=== PATIENT | female | born 1970 | race African-American/Black ===

== ENCOUNTER 2020-11-01 04:19 | Inpatient (IN) | payer OTHER ==
[2020-11-01] MEDS ORDERED: CEFOTAXIME SODIUM 1,000 MG in DEXTROSE 5%-WATER - 50 ML IVPB ONE ×2 (05:18→06:25)
[2020-11-01] MEDS ORDERED: AZITHROMYCIN IVPB 500 MG in DEXTROSE 5%-WATER - 250 ML IVPB ONE ×2 (05:20→06:25)
[2020-11-01] MEDS ORDERED: morphine CARPU-JECT 4 MG/1 ML DISP.SYRIN IVPUSH ONE (05:25)
[2020-11-01] MEDS ORDERED: METOCLOPRAMIDE HCL INJECTION 10 MG/2 ML VIAL ONE (05:27)
[2020-11-01] MEDS ORDERED: morphine SULFATE 4 MG/ML VIAL ONE ×4 (05:27→17:49)
[2020-11-01] MEDS ORDERED: METOCLOPRAMIDE HCL INJECTION 10 MG/2 ML VIAL IVPB ONE (05:27)
[2020-11-01 05:49] LABS: HEMOGLOBIN 7.2 GM/dL (10.7-15.3); LYMPH % 46.8 % (8-40); MCHC 34.8 g/dl (32.0-36.0); MEAN CELL VOLUME 123.5 fl (80-96); MEAN PLT VOLUME 12.2 fl (7.5-11.1); MONO % 8.6 % (3.8-10.2); NEUT % 40.6 % (42.8-82.8); PLATELET COUNT 139 K/MM3 (134-434); RBC 1.67 M/mm3 (3.60-5.2); RDW 20.2 % (11.6-15.6); WHITE BLOOD COUNT 5.6 K/mm3 (4.0-10.0)
[2020-11-01 06:01] LABS: INR 1.15 (0.83-1.09); PROTHROMBIN TIME (PATIENT) 13.8 SEC (9.7-13.0)
[2020-11-01 06:02] LABS: HEMATOCRIT 20.6 % (32.4-45.2)
[2020-11-01 06:03] LABS: ACTIVATED PTT 30.6 SECONDS (25.2-36.5)
[2020-11-01 06:23] LABS: EPI CELLS 7 /uL (0-25.1); HYALINE CASTS 0 /uL (0-3.1); URINE APPEARANCE CLEAR; URINE BACTERIA 125 /uL (0-1359); URINE BILIRUBIN NEGATIVE (NEGATIVE); URINE COLOR YELLOW; URINE GLUCOSE (UA) NEGATIVE (NEGATIVE); URINE KETONE NEGATIVE (NEGATIVE); URINE LEUK ESTERASE TRACE (NEGATIVE); URINE NITRITE NEGATIVE (NEGATIVE); URINE PROTEIN NEGATIVE (NEGATIVE); URINE RBC 2 /uL (0-23.9); URINE WBC 12 /uL (0-25.8)
[2020-11-01] MEDS ORDERED: AZITHROMYCIN IVPB 500 MG/250 ML BAG IVPB ONE (06:27)
[2020-11-01 06:49] LABS: ALBUMIN 3.3 g/dl (3.4-5.0); BLOOD UREA NITROGEN 9.9 mg/dL (7-18); CALCIUM 8.4 mg/dL (8.5-10.1)
[2020-11-01 06:53] LABS: CREATININE 0.8 mg/dL (0.55-1.3)
[2020-11-01 06:54] LABS: BILIRUBIN,TOTAL 1.3 mg/dL (0.2-1); TOT PROT 8.4 g/dl (6.4-8.2)
[2020-11-01] MEDS ORDERED: CEFTRIAXONE 1,000 MG in DEXTROSE 5%-WATER - 50 ML IVPB ONE (07:47)
[2020-11-01] MEDS ORDERED: CEFTRIAXONE 1 GM/50 ML BAG ONE (07:51)
[2020-11-01] MEDS ORDERED: levETIRAcetam 500 MG TABLET (FP) PO ONE (08:31)
[2020-11-01] MEDS ORDERED: morphine CARPU-JECT 8 MG/1 ML DISP.SYRIN IVPUSH ONE ×2 (09:36→13:34)
[2020-11-01 10:49] LABS: RETICULOCYTES 3.96 % (0.5-1.5)
[2020-11-01 10:59] LABS: ANISOCYTOSIS 1+; MACROCYTOSIS 1+; PLATELET ESTIMATE DECREASED; TARGET CELLS 2+
[2020-11-01] MEDS ORDERED: LACTATED RINGERS SOLUTION 1,000 ML/1,000 ML INFUS.BAG IV SCH (18:00)
[2020-11-01] MEDS: morphine SULFATE 4 MG/ML VIAL IVPUSH PRN ×2 (18:04→22:26)
[2020-11-01] MEDS ORDERED: CEFOTAXIME SODIUM IVPB SCH (21:00)
[2020-11-01] MEDS ORDERED: WATER IVPB SCH (21:00)
[2020-11-01] MEDS ORDERED: DEXTROSE 5% IVPB SCH (21:00)
[2020-11-01] MEDS ORDERED: PATIENT'S OWN MEDICATION (NON-FORMULARY) (Levetiracetam [Levetiracetam] 750 MG Tablet) PO SCH (22:00)
[2020-11-01] MEDS: levETIRAcetam 500 MG/5 ML ORAL SOLUTION (UNIT-DOSE CUPS) PO SCH (22:20)
[2020-11-01] MEDS: GABAPENTIN 300 MG CAPSULE PO SCH (22:21)
[2020-11-01] MEDS: ZOLPIDEM TARTRATE 5 MG TABLET PO SCH (22:21)
[2020-11-01] MEDS: SODIUM CHLORIDE 1,000 ML IV SCH (22:21)
[2020-11-01 23:36] VITALS: BMI 25.4
[2020-11-02] MEDS: morphine SULFATE 4 MG/ML VIAL IVPUSH PRN ×4 (03:38→20:40)
[2020-11-02] MEDS: SODIUM CHLORIDE 1,000 ML IV SCH ×2 (06:33→12:02)
[2020-11-02 08:43] LABS: BASO % 0.7 % (0-2.0); EOS % 2.7 % (0-4.5); HEMATOCRIT 26.9 % (32.4-45.2); HEMOGLOBIN 9.3 GM/dL (10.7-15.3); LYMPH % 48.9 % (8-40); MCH 38.8 pg (25.7-33.7); MCHC 34.4 g/dl (32.0-36.0); MEAN CELL VOLUME 112.8 fl (80-96); MEAN PLT VOLUME 11.9 fl (7.5-11.1); NEUT % 38.7 % (42.8-82.8); PLATELET COUNT 121 K/MM3 (134-434); RBC 2.39 M/mm3 (3.60-5.2); RDW 30.8 % (11.6-15.6)
[2020-11-02 08:45] LABS: WHITE BLOOD COUNT 5.4 K/mm3 (4.0-10.0)
[2020-11-02 08:58] LABS: ALBUMIN 3.2 g/dl (3.4-5.0); BLOOD UREA NITROGEN 7.1 mg/dL (7-18); CALCIUM 8.7 mg/dL (8.5-10.1); MAGNESIUM 2.7 mg/dL (1.8-2.4)
[2020-11-02 09:01] LABS: CREATININE 0.6 mg/dL (0.55-1.3)
[2020-11-02 09:04] LABS: BILIRUBIN,TOTAL 1.4 mg/dL (0.2-1); TOT PROT 7.7 g/dl (6.4-8.2)
[2020-11-02] MEDS ORDERED: DEXTROSE 5%-WATER - 50 ML IVPB ONE (09:30)
[2020-11-02] MEDS ORDERED: cefTRIAXone SODIUM 1 GM VIAL ONE (09:30)
[2020-11-02] MEDS: levETIRAcetam 500 MG/5 ML ORAL SOLUTION (UNIT-DOSE CUPS) PO SCH ×2 (09:51→22:02)
[2020-11-02] MEDS: LACTULOSE 20 GM/30 ML UDC (FOR ORAL USE ONLY) PO SCH (09:53)
[2020-11-02] MEDS: GABAPENTIN 300 MG CAPSULE PO SCH ×2 (09:54→22:02)
[2020-11-02] MEDS: FOLIC ACID 1 MG TABLET (FP) PO SCH (09:55)
[2020-11-02] MEDS: CEFTRIAXONE 1 GM in DEXTROSE 5%-WATER - 50 ML IVPB SCH (09:55)
[2020-11-02] MEDS: ASPIRIN 81 MG CHEWABLE TABLETS PO SCH (09:55)
[2020-11-02] MEDS ORDERED: PATIENT'S OWN MEDICATION (NON-FORMULARY) (Lactulose [Lactulose] 10 GM/15 ML Solution) PO SCH (10:00)
[2020-11-02] MEDS ORDERED: HYDROCHLOROTHIAZIDE 25 MG TABLET (FP) PO SCH (10:00)
[2020-11-02] MEDS: AZITHROMYCIN IVPB 500 MG/250 ML BAG IVPB SCH (12:00)
[2020-11-02] MEDS: PANTOPRAZOLE 20 MG TABLET PO SCH (12:01)
[2020-11-02] MEDS: HYDROXYUREA 500 MG CAPSULE PO SCH (12:01)
[2020-11-02 14:14] LABS: PLATELET ESTIMATE DECREASED
[2020-11-02] MEDS ORDERED: WATER IVPB SCH (18:00)
[2020-11-02] MEDS ORDERED: CEFOTAXIME SODIUM IVPB SCH (18:00)
[2020-11-02] MEDS ORDERED: DEXTROSE 5% IVPB SCH (18:00)
[2020-11-02] MEDS ORDERED: PT OWN MED DRAWER 7, Y5N ONE (19:38)
[2020-11-02] MEDS: ZOLPIDEM TARTRATE 5 MG TABLET PO SCH (22:02)
[2020-11-03] MEDS: SODIUM CHLORIDE 1,000 ML IV SCH ×3 (07:30→18:02)
[2020-11-03 08:41] LABS: HEMATOCRIT 27.6 % (32.4-45.2); HEMOGLOBIN 9.4 GM/dL (10.7-15.3); MCH 38.5 pg (25.7-33.7); MCHC 33.9 g/dl (32.0-36.0); MEAN CELL VOLUME 113.3 fl (80-96); MEAN PLT VOLUME 12.1 fl (7.5-11.1); PLATELET COUNT 115 K/MM3 (134-434); RBC 2.44 M/mm3 (3.60-5.2); RDW 31.4 % (11.6-15.6); WHITE BLOOD COUNT 4.6 K/mm3 (4.0-10.0)
[2020-11-03 09:03] LABS: CALCIUM 8.4 mg/dL (8.5-10.1)
[2020-11-03 09:04] LABS: BLOOD UREA NITROGEN 7.1 mg/dL (7-18)
[2020-11-03 09:08] LABS: CREATININE 0.6 mg/dL (0.55-1.3)
[2020-11-03 09:09] LABS: BILIRUBIN,TOTAL 1.2 mg/dL (0.2-1); TOT PROT 7.6 g/dl (6.4-8.2)
[2020-11-03] MEDS ORDERED: cefTRIAXone SODIUM 1 GM VIAL ONE (09:19)
[2020-11-03] MEDS ORDERED: DEXTROSE 5%-WATER - 50 ML IVPB ONE (09:20)
[2020-11-03] MEDS: PANTOPRAZOLE 20 MG TABLET PO SCH (09:26)
[2020-11-03] MEDS: ASPIRIN 81 MG CHEWABLE TABLETS PO SCH (09:26)
[2020-11-03] MEDS: FOLIC ACID 1 MG TABLET (FP) PO SCH (09:26)
[2020-11-03] MEDS: GABAPENTIN 300 MG CAPSULE PO SCH ×2 (09:26→22:10)
[2020-11-03] MEDS: LACTULOSE 20 GM/30 ML UDC (FOR ORAL USE ONLY) PO SCH (09:27)
[2020-11-03] MEDS: morphine SULFATE 4 MG/ML VIAL IVPUSH PRN ×4 (09:28→22:39)
[2020-11-03] MEDS: CEFTRIAXONE 1 GM in DEXTROSE 5%-WATER - 50 ML IVPB SCH (09:40)
[2020-11-03] MEDS: HYDROXYUREA 500 MG CAPSULE PO SCH (09:50)
[2020-11-03] MEDS: levETIRAcetam 500 MG/5 ML ORAL SOLUTION (UNIT-DOSE CUPS) PO SCH ×2 (09:50→22:40)
[2020-11-03] MEDS: AZITHROMYCIN IVPB 500 MG/250 ML BAG IVPB SCH (11:21)
[2020-11-03] MEDS ORDERED: PT OWN MED DRAWER 7, Y5N ONE (21:58)
[2020-11-03] MEDS: ZOLPIDEM TARTRATE 5 MG TABLET PO SCH (22:10)
[2020-11-04] MEDS: SODIUM CHLORIDE 1,000 ML IV SCH ×3 (01:44→19:56)
[2020-11-04] MEDS: morphine SULFATE 4 MG/ML VIAL IVPUSH PRN ×5 (05:05→21:22)
[2020-11-04 09:30] LABS: BASO % 0.4 % (0-2.0); EOS % 2.4 % (0-4.5); HEMATOCRIT 25.1 % (32.4-45.2); HEMOGLOBIN 8.6 GM/dL (10.7-15.3); LYMPH % 44.6 % (8-40); MCH 39.2 pg (25.7-33.7); MCHC 34.2 g/dl (32.0-36.0); MEAN CELL VOLUME 114.7 fl (80-96); MEAN PLT VOLUME 12.8 fl (7.5-11.1); MONO % 9.3 % (3.8-10.2); NEUT % 43.3 % (42.8-82.8); PLATELET COUNT 100 K/MM3 (134-434); RBC 2.19 M/mm3 (3.60-5.2); RDW 29.5 % (11.6-15.6); WHITE BLOOD COUNT 4.1 K/mm3 (4.0-10.0)
[2020-11-04 10:03] LABS: ALBUMIN 2.9 g/dl (3.4-5.0)
[2020-11-04 10:04] LABS: BLOOD UREA NITROGEN 4.1 mg/dL (7-18); MAGNESIUM 1.9 mg/dL (1.8-2.4)
[2020-11-04 10:06] LABS: CALCIUM 7.8 mg/dL (8.5-10.1)
[2020-11-04 10:07] LABS: BILIRUBIN,TOTAL 1.2 mg/dL (0.2-1); CREATININE 0.4 mg/dL (0.55-1.3); TOT PROT 7.3 g/dl (6.4-8.2)
[2020-11-04] MEDS ORDERED: PT OWN MED DRAWER 7, Y5N ONE (10:12)
[2020-11-04] MEDS ORDERED: cefTRIAXone SODIUM 1 GM VIAL ONE (10:13)
[2020-11-04] MEDS ORDERED: DEXTROSE 5%-WATER - 50 ML IVPB ONE (10:13)
[2020-11-04] MEDS: LACTULOSE 20 GM/30 ML UDC (FOR ORAL USE ONLY) PO SCH (10:37)
[2020-11-04] MEDS: CEFTRIAXONE 1 GM in DEXTROSE 5%-WATER - 50 ML IVPB SCH (10:37)
[2020-11-04] MEDS: levETIRAcetam 500 MG/5 ML ORAL SOLUTION (UNIT-DOSE CUPS) PO SCH ×2 (10:40→21:23)
[2020-11-04] MEDS: GABAPENTIN 300 MG CAPSULE PO SCH ×2 (10:42→21:23)
[2020-11-04] MEDS: PANTOPRAZOLE 20 MG TABLET PO SCH (10:42)
[2020-11-04] MEDS: ASPIRIN 81 MG CHEWABLE TABLETS PO SCH (10:42)
[2020-11-04] MEDS: FOLIC ACID 1 MG TABLET (FP) PO SCH (10:42)
[2020-11-04] MEDS: AZITHROMYCIN IVPB 500 MG/250 ML BAG IVPB SCH (10:46)
[2020-11-04] MEDS: HYDROXYUREA 500 MG CAPSULE PO SCH (11:21)
[2020-11-04] MEDS: ZOLPIDEM TARTRATE 5 MG TABLET PO SCH (21:23)
[2020-11-05] MEDS: morphine SULFATE 4 MG/ML VIAL IVPUSH PRN ×7 (01:50→22:03)
[2020-11-05] MEDS: SODIUM CHLORIDE 1,000 ML IV SCH ×3 (04:00→22:06)
[2020-11-05 09:13] LABS: HEMATOCRIT 25.7 % (32.4-45.2); HEMOGLOBIN 8.9 GM/dL (10.7-15.3); MCH 39.5 pg (25.7-33.7); MCHC 34.7 g/dl (32.0-36.0); MEAN CELL VOLUME 113.7 fl (80-96); MEAN PLT VOLUME 11.8 fl (7.5-11.1); PLATELET COUNT 102 K/MM3 (134-434); RBC 2.26 M/mm3 (3.60-5.2); RETICULOCYTES 2.02 % (0.5-1.5); WHITE BLOOD COUNT 4.7 K/mm3 (4.0-10.0)
[2020-11-05 09:25] LABS: ALBUMIN 2.9 g/dl (3.4-5.0); CALCIUM 7.7 mg/dL (8.5-10.1)
[2020-11-05 09:26] LABS: BLOOD UREA NITROGEN 4.5 mg/dL (7-18); MAGNESIUM 1.9 mg/dL (1.8-2.4)
[2020-11-05 09:28] LABS: BILIRUBIN,TOTAL 1.1 mg/dL (0.2-1); TOT PROT 7.1 g/dl (6.4-8.2)
[2020-11-05 09:29] LABS: CREATININE 0.5 mg/dL (0.55-1.3); PHOSPHOROUS 2.5 mg/dL (2.5-4.9)
[2020-11-05] MEDS ORDERED: PT OWN MED DRAWER 7, Y5N ONE (11:37)
[2020-11-05] MEDS: levETIRAcetam 500 MG/5 ML ORAL SOLUTION (UNIT-DOSE CUPS) PO SCH ×2 (11:40→21:28)
[2020-11-05] MEDS: ASPIRIN 81 MG CHEWABLE TABLETS PO SCH (11:40)
[2020-11-05] MEDS: HYDROXYUREA 500 MG CAPSULE PO SCH (11:42)
[2020-11-05] MEDS: GABAPENTIN 300 MG CAPSULE PO SCH ×2 (11:43→21:28)
[2020-11-05] MEDS: FOLIC ACID 1 MG TABLET (FP) PO SCH (11:43)
[2020-11-05] MEDS: PANTOPRAZOLE 20 MG TABLET PO SCH (11:43)
[2020-11-05] MEDS: LACTULOSE 20 GM/30 ML UDC (FOR ORAL USE ONLY) PO SCH (11:45)
[2020-11-05] MEDS: ZOLPIDEM TARTRATE 5 MG TABLET PO SCH (22:03)
[2020-11-05] MEDS ORDERED: ACETAMINOPHEN 325 MG TABLET (FP) PO PRN (22:05)
[2020-11-06] MEDS: morphine SULFATE 4 MG/ML VIAL IVPUSH PRN ×6 (01:37→22:05)
[2020-11-06] MEDS: SODIUM CHLORIDE 1,000 ML IV SCH ×3 (06:07→23:25)
[2020-11-06] MEDS ORDERED: PT OWN MED DRAWER 7, Y5N ONE ×2 (08:48→17:42)
[2020-11-06 08:58] LABS: HEMATOCRIT 25.9 % (32.4-45.2); HEMOGLOBIN 9.2 GM/dL (10.7-15.3); MCHC 35.4 g/dl (32.0-36.0); MEAN CELL VOLUME 113.5 fl (80-96); MEAN PLT VOLUME 11.5 fl (7.5-11.1); PLATELET COUNT 102 K/MM3 (134-434); RBC 2.28 M/mm3 (3.60-5.2); RDW 28.5 % (11.6-15.6); RETICULOCYTES 2.37 % (0.5-1.5)
[2020-11-06 09:09] LABS: MCH 40.2 pg (25.7-33.7)
[2020-11-06 09:10] LABS: WHITE BLOOD COUNT 5.4 K/mm3 (4.0-10.0)
[2020-11-06] MEDS: levETIRAcetam 500 MG/5 ML ORAL SOLUTION (UNIT-DOSE CUPS) PO SCH ×2 (09:24→22:06)
[2020-11-06] MEDS: FOLIC ACID 1 MG TABLET (FP) PO SCH (09:24)
[2020-11-06] MEDS: PANTOPRAZOLE 20 MG TABLET PO SCH (09:24)
[2020-11-06] MEDS: LACTULOSE 20 GM/30 ML UDC (FOR ORAL USE ONLY) PO SCH (09:24)
[2020-11-06] MEDS: ASPIRIN 81 MG CHEWABLE TABLETS PO SCH (09:24)
[2020-11-06] MEDS: GABAPENTIN 300 MG CAPSULE PO SCH ×2 (09:25→22:06)
[2020-11-06] MEDS: HYDROXYUREA 500 MG CAPSULE PO SCH (09:25)
[2020-11-06 09:27] LABS: BILIRUBIN,TOTAL 1.2 mg/dL (0.2-1); BLOOD UREA NITROGEN 4.4 mg/dL (7-18); CALCIUM 8.3 mg/dL (8.5-10.1); MAGNESIUM 1.9 mg/dL (1.8-2.4)
[2020-11-06 09:29] LABS: BILIRUBIN,DIRECT 0.7 mg/dL (0.0-0.2)
[2020-11-06 09:31] LABS: CREATININE 0.5 mg/dL (0.55-1.3); PHOSPHOROUS 2.5 mg/dL (2.5-4.9); TOT PROT 7.4 g/dl (6.4-8.2)
[2020-11-06] MEDS ORDERED: FUROSEMIDE 40 MG/4 ML INJECTABLE VIAL IVPUSH ONE (11:00)
[2020-11-06] MEDS: CARVEDILOL 3.125 MG TABLET (FP) PO SCH ×2 (11:04→22:06)
[2020-11-06 11:46] LABS: ANISOCYTOSIS 1+; MACROCYTOSIS 1+; PLATELET ESTIMATE DECREASED; TARGET CELLS 1+
[2020-11-06] MEDS: ZOLPIDEM TARTRATE 5 MG TABLET PO SCH (22:06)
[2020-11-07] MEDS: morphine SULFATE 4 MG/ML VIAL IVPUSH PRN ×2 (02:09→08:59)
[2020-11-07] MEDS: SODIUM CHLORIDE 1,000 ML IV SCH (07:30)
[2020-11-07 08:56] VITALS: BP 119/67; PULSE 78; TEMP 98.3
[2020-11-07 09:27] LABS: BASO % 0.7 % (0-2.0); EOS % 2.2 % (0-4.5); HEMATOCRIT 25.2 % (32.4-45.2); HEMOGLOBIN 8.6 GM/dL (10.7-15.3); LYMPH % 46.3 % (8-40); MCH 39.2 pg (25.7-33.7); MCHC 34.4 g/dl (32.0-36.0); MEAN PLT VOLUME 12.3 fl (7.5-11.1); MONO % 8.6 % (3.8-10.2); NEUT % 42.2 % (42.8-82.8); PLATELET COUNT 97 K/MM3 (134-434); RBC 2.21 M/mm3 (3.60-5.2); RDW 28.3 % (11.6-15.6); WHITE BLOOD COUNT 5.5 K/mm3 (4.0-10.0)
[2020-11-07 09:53] LABS: ALBUMIN 3.1 g/dl (3.4-5.0); BLOOD UREA NITROGEN 3.8 mg/dL (7-18); CALCIUM 8.6 mg/dL (8.5-10.1)
[2020-11-07 09:56] LABS: CREATININE 0.5 mg/dL (0.55-1.3)
[2020-11-07 09:57] LABS: BILIRUBIN,TOTAL 1.4 mg/dL (0.2-1)
[2020-11-07 09:58] LABS: TOT PROT 7.3 g/dl (6.4-8.2)
[2020-11-07] MEDS ORDERED: VALSARTAN 40 MG TABLET PO SCH ×2 (10:00)
[2020-11-07] MEDS ORDERED: SODIUM CHLORIDE 1,000 ML IV SCH (10:06)
[2020-11-07] MEDS: HYDROXYUREA 500 MG CAPSULE PO SCH (10:15)
[2020-11-07] MEDS: LACTULOSE 20 GM/30 ML UDC (FOR ORAL USE ONLY) PO SCH (10:16)
[2020-11-07] MEDS: PANTOPRAZOLE 20 MG TABLET PO SCH (10:16)
[2020-11-07] MEDS: levETIRAcetam 500 MG/5 ML ORAL SOLUTION (UNIT-DOSE CUPS) PO SCH (10:16)
[2020-11-07] MEDS: FOLIC ACID 1 MG TABLET (FP) PO SCH (10:17)
[2020-11-07] MEDS: ASPIRIN 81 MG CHEWABLE TABLETS PO SCH (10:18)
[2020-11-07] MEDS: CARVEDILOL 3.125 MG TABLET (FP) PO SCH (10:18)
[2020-11-07] MEDS: GABAPENTIN 300 MG CAPSULE PO SCH (10:18)
[2020-11-07 11:13] LABS: ANISOCYTOSIS 3+; MACROCYTOSIS 3+; OVALOCYTE 2+; PLATELET ESTIMATE DECREASED; TARGET CELLS 1+
[2020-11-07] MEDS ORDERED: POTASSIUM CHLORIDE TABS 20 MEQ TABLET.ER (FP) PO ONE ×2 (12:35→14:35)
== END 2020-11-07 14:46 | disposition home or self-care (01) | DRG 812 ==
LOC: JER 04:19 → JERBED 14:48 → J5S 20:00
PROVIDERS: ATTEND Internal Medicine
PROC: 30233N1 Transfusion of Nonautologous Red Blood Cells into Peripheral Vein, Percutaneous Approach (ICD-10-PCS; principal; 2020-11-01)
DX: D57.00 Hb-SS disease with crisis, unspecified (principal); I31.3 Pericardial effusion (noninflammatory); I42.8 Other cardiomyopathies; G40.909 Epilepsy, unspecified, not intractable, without status epilepticus; I27.20 Pulmonary hypertension, unspecified; R10.12 Left upper quadrant pain
CPT/HCPCS: 36415; 36430; 71045-TC-FY; 71275-TC; 74177-TC; 80048; 80053; 80076; 81003; 83605; 83615; 83690; 83735; 84100; 84703; 85025; 85027; 85045; 85610; 85730; 86850; 86900; 86901; 86922; 87040; 87086; 87804; 87899; 93005; 93010; 93306-TC; 94010; 97116-GP; 97162-GP; 99285-25; C9803; J8999; P9058; Q9967; U0003; U0005

== ENCOUNTER 2024-03-22 23:01 | Observation (INO) | payer OTHER ==
[2024-03-23 01:13] LABS: BASO % 1.6 % (0-2.0); EOS % 2.9 % (0-4.5); HEMATOCRIT 26.3 % (32.4-45.2); HEMOGLOBIN 8.9 GM/dL (10.7-15.3); LYMPH % 43.6 % (8-40); MCH 32.3 pg (25.7-33.7); MCHC 34.1 g/dl (32.0-36.0); MEAN CELL VOLUME 94.7 fl (80-96); MEAN PLT VOLUME 10.4 fl (7.5-11.1); NEUT % 40.9 % (42.8-82.8); PLATELET COUNT 154 10^3/uL (134-434); RBC 2.77 M/mm3 (3.60-5.2); RDW 24.1 % (11.6-15.6); WHITE BLOOD COUNT 6.2 K/mm3 (4.0-10.0)
[2024-03-23 01:41] LABS: POTASSIUM 3.9 mmol/L (3.5-5.1)
[2024-03-23 01:43] LABS: CALCIUM 8.7 mg/dL (8.5-10.1)
[2024-03-23 01:44] LABS: ALBUMIN 2.7 g/dl (3.4-5.0); BLOOD UREA NITROGEN 23.7 mg/dL (7-18)
[2024-03-23 01:47] LABS: CREATININE 1.2 mg/dL (0.55-1.3)
[2024-03-23 01:49] LABS: BILIRUBIN,TOTAL 3.2 mg/dL (0.2-1); TOT PROT 7.2 g/dl (6.4-8.2)
[2024-03-23 04:42] LABS: ANISOCYTOSIS 3+; MACROCYTOSIS 1+; ROULEAU 1+; SICKELED CELLS 1+; TARGET CELLS 2+
[2024-03-23] MEDS ORDERED: morphine SO4 SUSTAINED ACTING 30 MG TABLET.SA PO PRN (06:00)
[2024-03-23] MEDS ORDERED: PATIENT'S OWN MEDICATION (NON-FORMULARY) (Riociguat [Adempas] 2.5 MG Tablet) PO SCH (06:00)
[2024-03-23] MEDS ORDERED: PATIENT'S OWN MEDICATION (NON-FORMULARY) (Levetiracetam [Levetiracetam] 750 MG Tablet) PO SCH (06:00)
[2024-03-23] MEDS ORDERED: PATIENT'S OWN MEDICATION (NON-FORMULARY) (Oxycodone Hcl/Acetaminophen [Endocet 10-325 Mg T PO PRN (06:01)
[2024-03-23 07:50] LABS: CALCIUM 8.8 mg/dL (8.5-10.1)
[2024-03-23 07:52] LABS: ALBUMIN 2.6 g/dl (3.4-5.0); MAGNESIUM 1.8 mg/dL (1.8-2.4)
[2024-03-23 07:55] LABS: CREATININE 1.1 mg/dL (0.55-1.3); PHOSPHOROUS 3.7 mg/dL (2.5-4.9)
[2024-03-23 07:56] LABS: BILIRUBIN,TOTAL 2.7 mg/dL (0.2-1); TOT PROT 6.8 g/dl (6.4-8.2)
[2024-03-23 08:16] LABS: HEMATOCRIT 24.4 % (32.4-45.2); HEMOGLOBIN 8.3 GM/dL (10.7-15.3); MCH 32.3 pg (25.7-33.7); MCHC 34.1 g/dl (32.0-36.0); MEAN CELL VOLUME 94.8 fl (80-96); MEAN PLT VOLUME 10.7 fl (7.5-11.1); PLATELET COUNT 151 10^3/uL (134-434); RBC 2.58 M/mm3 (3.60-5.2); RDW 24.4 % (11.6-15.6)
[2024-03-23] MEDS ORDERED: PANTOPRAZOLE 40 MG TABLET PO ONE (08:18)
[2024-03-23 08:20] LABS: WHITE BLOOD COUNT 6.4 K/mm3 (4.0-10.0)
[2024-03-23] MEDS: PANTOPRAZOLE 40 MG TABLET PO SCH (08:22)
[2024-03-23 09:25] LABS: ANISOCYTOSIS 1+; MACROCYTOSIS 1+; TARGET CELLS 2+
[2024-03-23] MEDS ORDERED: APIXABAN 5 MG TABLET ONE (09:44)
[2024-03-23] MEDS ORDERED: SPIRONOLACTONE 25 MG TABLET ONE (09:45)
[2024-03-23] MEDS: APIXABAN 5 MG TABLET PO SCH (10:12)
[2024-03-23] MEDS: HYDROXYUREA 500 MG CAPSULE PO SCH (10:12)
[2024-03-23] MEDS: TORSEMIDE 20 MG TABLET (FP) PO SCH (10:12)
[2024-03-23] MEDS: SPIRONOLACTONE 25 MG TABLET PO SCH (10:12)
[2024-03-23] MEDS: MAGNESIUM OXIDE 400 MG TABLET (FP) PO ONE (10:12)
[2024-03-23 12:48] VITALS: BMI 19.8
[2024-03-23] MEDS ORDERED: SODIUM CHLORIDE 500 ML IV STA (16:17)
[2024-03-23] MEDS: morphine SO4 SUSTAINED ACTING 30 MG TABLET.SA PO SCH (21:49)
[2024-03-23] MEDS ORDERED: ATORVASTATIN CA 40 MG TABLET (FP) PO SCH (22:00)
[2024-03-23] MEDS: ZOLPIDEM TARTRATE 5 MG TABLET PO PRN (22:45)
[2024-03-24 12:11] VITALS: RESP 18
[2024-03-24 14:58] VITALS: BP 91/70; PULSE 98; TEMP 98.4
[2024-03-24] MEDS ORDERED: ACETAMINOPHEN 500 MG TABLET (FP) PO ONE (17:18)
[2024-03-24] MEDS: morphine SO4 SUSTAINED ACTING 30 MG TABLET.SA PO SCH (17:35)
[2024-03-25 16:09] LABS: HGB SOLUBILITY Positive (Negative)
== END 2024-03-24 18:18 | disposition home or self-care (01) ==
LOC: JER 23:01 → JERBED 03-23 01:24 → J7W 03-23 12:19
PROVIDERS: ADMIT Internal Medicine; ATTEND Nurse Practitioner Acute Care
DX: R09.02 Hypoxemia (principal); I27.20 Pulmonary hypertension, unspecified; I69.354 Hemiplegia and hemiparesis following cerebral infarction affecting left non-dominant side; G40.909 Epilepsy, unspecified, not intractable, without status epilepticus; I67.1 Cerebral aneurysm, nonruptured; D57.1 Sickle-cell disease without crisis; Z91.198 Patient's noncompliance with other medical treatment and regimen for other reason; Z90.49 Acquired absence of other specified parts of digestive tract
CPT/HCPCS: 36415; 76700-TC; 80053; 82248; 82962; 83021; 83615; 83735; 84100; 85025; 85027; 85660; 99285-25; G0378; J8999

== ENCOUNTER 2024-06-16 12:09 | Inpatient (IN) | payer OTHER ==
[2024-06-16] MEDS ORDERED: ACETAMINOPHEN 325 MG TABLET (FP) ONE (14:20)
[2024-06-16] MEDS: ACETAMINOPHEN 325 MG TABLET (FP) PO ONE (14:55)
[2024-06-16] MEDS ORDERED: LIDOCAINE 4% PATCH TP ONE (14:58)
[2024-06-16 15:02] LABS: BASO % 0.6 % (0-2.0); EOS % 0.8 % (0-4.5); HEMATOCRIT 22.1 % (32.4-45.2); HEMOGLOBIN 7.6 GM/dL (10.7-15.3); LYMPH % 37.4 % (8-40); MCH 39.2 pg (25.7-33.7); MCHC 34.5 g/dl (32.0-36.0); MEAN CELL VOLUME 113.7 fl (80-96); MEAN PLT VOLUME 11.6 fl (7.5-11.1); MONO % 11.3 % (3.8-10.2); NEUT % 49.9 % (42.8-82.8); PLATELET COUNT 100 10^3/uL (134-434); RBC 1.95 M/mm3 (3.60-5.2); RDW 29.8 % (11.6-15.6)
[2024-06-16 15:28] LABS: POTASSIUM 3.7 mmol/L (3.5-5.1)
[2024-06-16 15:31] LABS: CALCIUM 9.1 mg/dL (8.5-10.1)
[2024-06-16 15:32] LABS: ALBUMIN 3.9 g/dl (3.4-5.0); BLOOD UREA NITROGEN 12.6 mg/dL (7-18)
[2024-06-16 15:35] LABS: CREATININE 0.8 mg/dL (0.55-1.3)
[2024-06-16 15:36] LABS: BILIRUBIN,TOTAL 1.8 mg/dL (0.2-1)
[2024-06-16 15:37] LABS: TOT PROT 8.9 g/dl (6.4-8.2)
[2024-06-16] MEDS: LIDOCAINE 4% PATCH TP ONE (15:46)
[2024-06-16] MEDS ORDERED: KETOROLAC TROMETHAMINE 15 MG/ML VIAL ONE (15:49)
[2024-06-16 15:51] LABS: ANISOCYTOSIS 2+; TARGET CELLS 2+
[2024-06-16 15:52] LABS: MACROCYTOSIS 2+
[2024-06-16] MEDS: KETOROLAC TROMETHAMINE 15 MG/ML VIAL IM ONE (15:55)
[2024-06-16] MEDS: SODIUM CHLORIDE 500 ML IV STA (15:56)
[2024-06-16] MEDS ORDERED: HYDROmorphone HCL CARPU-JECT 2 MG/1 ML DISP.SYRIN ONE (16:59)
[2024-06-16] MEDS: HYDROmorphone HCl 2 MG/ML VIAL IVPUSH ONE (17:11)
[2024-06-16] MEDS ORDERED: MORPHINE SULFATE 2 MG/ML SYRINGE ONE (21:34)
[2024-06-16] MEDS: MORPHINE SULFATE 2 MG/ML SYRINGE IVPUSH ONE (21:38)
[2024-06-16] MEDS ORDERED: SENNOSIDES 8.6MG TABLET (FP) PO ONE (22:01)
[2024-06-16] MEDS ORDERED: APIXABAN 5 MG TABLET ONE (22:01)
[2024-06-16] MEDS ORDERED: ATORVASTATIN CA 40 MG TABLET (FP) ONE (22:02)
[2024-06-16] MEDS ORDERED: levETIRAcetam 500 MG TABLET (FP) PO ONE (22:05)
[2024-06-16] MEDS ORDERED: ZOLPIDEM TARTRATE 5 MG TABLET ONE (22:37)
[2024-06-16] MEDS: ZOLPIDEM TARTRATE 5 MG TABLET PO PRN (22:45)
[2024-06-16] MEDS: HYDROXYUREA 500 MG CAPSULE PO SCH (22:45)
[2024-06-16] MEDS: APIXABAN 5 MG TABLET PO SCH (22:45)
[2024-06-16] MEDS: levETIRAcetam 500 MG TABLET (FP) PO SCH (22:45)
[2024-06-16] MEDS: SENNOSIDES 8.6MG TABLET (FP) PO SCH (22:46)
[2024-06-16] MEDS: ATORVASTATIN CA 40 MG TABLET (FP) PO SCH (22:46)
[2024-06-17] MEDS: LIDOCAINE PATCH REMOVAL MC SCH (02:41)
[2024-06-17] MEDS: morphine SULFATE 4 MG/ML VIAL IVPUSH PRN (02:46)
[2024-06-17 03:08] VITALS: BMI 21.7
[2024-06-17] MEDS: morphine SO4 SUSTAINED ACTING 30 MG TABLET.SA PO PRN (04:20)
[2024-06-17] MEDS: ACETAMINOPHEN 1000 MG/100 ML BAG IVPB PRN (05:11)
[2024-06-17] MEDS: TORSEMIDE 20 MG TABLET (FP) PO SCH (09:31)
[2024-06-17] MEDS: PANTOPRAZOLE 40 MG TABLET PO SCH (09:31)
[2024-06-17] MEDS: ASPIRIN 81 MG CHEWABLE TABLETS PO SCH (09:31)
[2024-06-17] MEDS: SPIRONOLACTONE 25 MG TABLET PO SCH (09:31)
[2024-06-17 10:02] LABS: POTASSIUM 3.7 mmol/L (3.5-5.1)
[2024-06-17 10:06] LABS: BLOOD UREA NITROGEN 9.8 mg/dL (7-18); MAGNESIUM 2.2 mg/dL (1.8-2.4)
[2024-06-17 10:09] LABS: CALCIUM 8.9 mg/dL (8.5-10.1)
[2024-06-17 10:10] LABS: CREATININE 0.6 mg/dL (0.55-1.3)
[2024-06-17 10:11] LABS: BILIRUBIN,TOTAL 1.9 mg/dL (0.2-1)
[2024-06-17 10:12] LABS: PHOSPHOROUS 4.1 mg/dL (2.5-4.9)
[2024-06-17 10:16] LABS: HEMATOCRIT 18.6 % (32.4-45.2); MCH 39.3 pg (25.7-33.7); MCHC 34.3 g/dl (32.0-36.0); MEAN CELL VOLUME 114.6 fl (80-96); PLATELET COUNT 81 10^3/uL (134-434); RBC 1.62 M/mm3 (3.60-5.2); RDW 29.5 % (11.6-15.6); WHITE BLOOD COUNT 4.5 K/mm3 (4.0-10.0)
[2024-06-17 10:18] LABS: HEMOGLOBIN 6.4 GM/dL (10.7-15.3)
[2024-06-17 10:55] LABS: ANISOCYTOSIS 2+; CORRECTED WBC 3.91 K/mm3; HOWELL-JOLLY BODIES 1+; MACROCYTOSIS 2+
[2024-06-17 12:42] LABS: TOT PROT 7.2 g/dl (6.4-8.2)
[2024-06-17] MEDS ORDERED: HYDROmorphone HCL 2 MG TABLET PO PRN (16:05)
[2024-06-17] MEDS: HYDROmorphone HCL CARPU-JECT 2 MG/1 ML DISP.SYRIN IVPUSH ONE (16:25)
[2024-06-17] MEDS: HYDROmorphone HCL CARPU-JECT 2 MG/1 ML DISP.SYRIN IVPUSH PRN (23:32)
[2024-06-18] MEDS: ACETAMINOPHEN 1000 MG/100 ML BAG IVPB PRN (04:03)
[2024-06-18 11:29] LABS: HEMATOCRIT 27.9 % (32.4-45.2); HEMOGLOBIN 9.5 GM/dL (10.7-15.3); MCH 35.4 pg (25.7-33.7); MCHC 33.9 g/dl (32.0-36.0); MEAN CELL VOLUME 104.4 fl (80-96); MEAN PLT VOLUME 11.6 fl (7.5-11.1); PLATELET COUNT 84 10^3/uL (134-434); RBC 2.67 M/mm3 (3.60-5.2); RDW 29.3 % (11.6-15.6)
[2024-06-18 11:44] LABS: POTASSIUM 3.8 mmol/L (3.5-5.1)
[2024-06-18 11:51] LABS: ALBUMIN 3.1 g/dl (3.4-5.0); BLOOD UREA NITROGEN 8.7 mg/dL (7-18); CALCIUM 8.9 mg/dL (8.5-10.1)
[2024-06-18 11:52] LABS: MAGNESIUM 2.1 mg/dL (1.8-2.4)
[2024-06-18 11:54] LABS: BILIRUBIN,TOTAL 3.3 mg/dL (0.2-1); CREATININE 0.7 mg/dL (0.55-1.3)
[2024-06-18 11:55] LABS: TOT PROT 7.6 g/dl (6.4-8.2)
[2024-06-18 12:23] LABS: ANISOCYTOSIS 3+; CORRECTED WBC 3.51 K/mm3; MACROCYTOSIS 2+; TARGET CELLS 1+
[2024-06-18] MEDS: RIOCIGUAT 2.5 MG PO SCH (18:42)
[2024-06-19] MEDS: ZOLPIDEM TARTRATE 5 MG TABLET PO ONE (01:00)
[2024-06-19 09:49] LABS: BASO % 0.1 % (0-2.0); EOS % 1.7 % (0-4.5); HEMATOCRIT 26.9 % (32.4-45.2); HEMOGLOBIN 9.3 GM/dL (10.7-15.3); LYMPH % 31.3 % (8-40); MCH 36.5 pg (25.7-33.7); MCHC 34.7 g/dl (32.0-36.0); MEAN CELL VOLUME 105.1 fl (80-96); MEAN PLT VOLUME 12.2 fl (7.5-11.1); MONO % 8.9 % (3.8-10.2); PLATELET COUNT 85 10^3/uL (134-434); RBC 2.56 M/mm3 (3.60-5.2); RDW 29.4 % (11.6-15.6); WHITE BLOOD COUNT 4.1 K/mm3 (4.0-10.0)
[2024-06-19 10:38] LABS: POTASSIUM 3.4 mmol/L (3.5-5.1)
[2024-06-19 11:01] LABS: ALBUMIN 3.1 g/dl (3.4-5.0); BLOOD UREA NITROGEN 9.8 mg/dL (7-18); CALCIUM 9.3 mg/dL (8.5-10.1)
[2024-06-19] MEDS: LIDOCAINE 4% PATCH TP SCH (11:01)
[2024-06-19 11:04] LABS: CREATININE 0.6 mg/dL (0.55-1.3)
[2024-06-19 11:06] LABS: BILIRUBIN,TOTAL 2.3 mg/dL (0.2-1); TOT PROT 7.6 g/dl (6.4-8.2)
[2024-06-19 14:37] VITALS: BP 100/66; PULSE 68; RESP 18
[2024-06-19 15:09] VITALS: TEMP 98.6
[2024-06-19] MEDS: POTASSIUM CHLORIDE ORAL LIQUID 20 MEQ/15 ML PO ONE (15:16)
[2024-06-19] MEDS ORDERED: LIDOCAINE PATCH REMOVAL MC SCH (22:00)
== END 2024-06-19 16:32 | DRG 812 ==
LOC: JER 12:09 → JERBED 17:31 → J8W 06-17 02:40 → OBSVTOIN 06-17 15:36
PROVIDERS: ADMIT Internal Medicine; ATTEND Internal Medicine
PROC: 30233N1 Transfusion of Nonautologous Red Blood Cells into Peripheral Vein, Percutaneous Approach (ICD-10-PCS; principal; 2024-06-17)
DX: D57.1 Sickle-cell disease without crisis (principal); I50.32 Chronic diastolic (congestive) heart failure; G81.90 Hemiplegia, unspecified affecting unspecified side; I11.0 Hypertensive heart disease with heart failure; I25.10 Atherosclerotic heart disease of native coronary artery without angina pectoris; E78.5 Hyperlipidemia, unspecified; I27.20 Pulmonary hypertension, unspecified; G40.909 Epilepsy, unspecified, not intractable, without status epilepticus; K59.00 Constipation, unspecified; S80.12XA Contusion of left lower leg, initial encounter; Z86.718 Personal history of other venous thrombosis and embolism; Z99.81 Dependence on supplemental oxygen; Z86.73 Personal history of transient ischemic attack (TIA), and cerebral infarction without residual deficits; W18.30XA Fall on same level, unspecified, initial encounter; Y93.9 Activity, unspecified; Y92.009 Unspecified place in unspecified non-institutional (private) residence as the place of occurrence of the external cause; Y99.9 Unspecified external cause status
CPT/HCPCS: 36415; 36430; 73502-TC-LT-FY; 73552-TC-LT-FY; 73562-TC-LT-FY; 73590-TC-LT-FY; 73700-TC-RT; 73718-TC-LT; 80053; 82248; 83615; 83735; 84100; 84484; 84703; 85025; 85045; 86850; 86900; 86901; 86922; 93005; 93010; 97116-GP; 97163-GP; 99285-25; G0378; J0131; J8999; P9038; P9058

== ENCOUNTER 2024-09-03 11:21 | Inpatient (IN) | payer OTHER ==
[2024-09-03] MEDS ORDERED: morphine SULFATE 4 MG/ML VIAL ONE (12:30)
[2024-09-03] MEDS: morphine CARPU-JECT 4 MG/1 ML DISP.SYRIN IVPUSH ONE (12:36)
[2024-09-03 12:57] VITALS: BMI 20.5
[2024-09-03 13:04] LABS: VENOUS BASE EXCESS 4.6 mmol/L (-2-2); VENOUS PCO2 50.4 mmHg (38-52); VENOUS PH 7.397 (7.310-7.410)
[2024-09-03 13:05] LABS: ABSOLUTE IMMATURE GRANULOCYTES 0.05 x10^3/uL (0.0-0.031); BASOPHILS # 0.03 x10^3/uL (0.01-0.08); EOSINOPHIL % 0.5 % (0.7-5.8); EOSINOPHILS # 0.03 x10^3/uL (0.04-0.36); HEMATOCRIT 28.9 % (34.1-44.9); HEMOGLOBIN 9.8 g/dL (11.2-15.7); MCHC 33.9 g/dl (32.2-35.5); MEAN CELL VOLUME 104.3 fl (79.4-94.8); MEAN PLT VOLUME 12.3 fl (9.4-12.3); MONOCYTE # 0.78 x10^3/uL (0.24-0.86); MONOCYTE % 12.7 % (4.7-12.5); PLATELET COUNT 252 x10^3/uL (182-369); RDW 19.9 % (12.3-16.6)
[2024-09-03 13:21] LABS: INR 1.11 (0.83-1.09); PROTHROMBIN TIME (PATIENT) 12.2 SEC (9.7-13.0)
[2024-09-03 13:24] LABS: ACTIVATED PTT 30.7 SECONDS (25.2-36.5)
[2024-09-03 13:25] LABS: POTASSIUM 3.7 mmol/L (3.5-5.1)
[2024-09-03 13:28] LABS: CALCIUM 9.1 mg/dL (8.5-10.1)
[2024-09-03 13:29] LABS: ALBUMIN 3.6 g/dl (3.4-5.0); MAGNESIUM 2.1 mg/dL (1.8-2.4)
[2024-09-03 13:32] LABS: PHOSPHOROUS 4.3 mg/dL (2.5-4.9)
[2024-09-03 13:33] LABS: BILIRUBIN,TOTAL 1.2 mg/dL (0.2-1)
[2024-09-03 13:34] LABS: TOT PROT 8.2 g/dl (6.4-8.2)
[2024-09-03 13:37] LABS: PH,URINE 7.5 (5.0-8.0); URINE APPEARANCE CLEAR; URINE BILIRUBIN NEGATIVE (NEGATIVE); URINE COLOR YELLOW; URINE GLUCOSE (UA) NEGATIVE (NEGATIVE); URINE KETONE NEGATIVE (NEGATIVE); URINE LEUK ESTERASE NEGATIVE (NEGATIVE); URINE NITRITE NEGATIVE (NEGATIVE); URINE PROTEIN NEGATIVE (NEGATIVE)
[2024-09-03 13:37] LABS: N-TERMINAL BNP 892.4 pg/ml (5-125)
[2024-09-03 13:58] LABS: Reticulocyte % 13.61 % (0.5-1.7)
[2024-09-03] MEDS ORDERED: HYDROmorphone HCL CARPU-JECT 2 MG/1 ML DISP.SYRIN ONE ×2 (14:27→19:54)
[2024-09-03] MEDS: HYDROmorphone HCl 2 MG/ML VIAL IVPUSH ONE (14:40)
[2024-09-03] MEDS: SODIUM CHLORIDE 0.9% 500 ML INFUS.BAG IV ONE (16:09)
[2024-09-03] MEDS ORDERED: MORPHINE SULFATE 2 MG/ML SYRINGE ONE (17:09)
[2024-09-03] MEDS: LACTATED RINGERS SOLUTION 1,000 ML/1,000 ML INFUS.BAG IV SCH (19:17)
[2024-09-03] MEDS: HYDROmorphone HCL CARPU-JECT 2 MG/1 ML DISP.SYRIN IVPUSH PRN (20:07)
[2024-09-03] MEDS ORDERED: HYDROXYUREA 500 MG CAPSULE PO SCH (22:00)
[2024-09-03] MEDS ORDERED: PATIENT'S OWN MEDICATION (NON-FORMULARY) (Levetiracetam [Levetiracetam] 750 MG Tablet) PO SCH (22:00)
[2024-09-03] MEDS: ATORVASTATIN CA 40 MG TABLET (FP) PO SCH (22:39)
[2024-09-03] MEDS: SENNOSIDES 8.6MG TABLET (FP) PO SCH (22:40)
[2024-09-03] MEDS: FOLIC ACID 1 MG TABLET (FP) PO SCH (22:41)
[2024-09-04 08:53] LABS: ABSOLUTE IMMATURE GRANULOCYTES 0.06 x10^3/uL (0.0-0.031); BASOPHILS # 0.03 x10^3/uL (0.01-0.08); EOSINOPHIL % 1.2 % (0.7-5.8); EOSINOPHILS # 0.08 x10^3/uL (0.04-0.36); HEMATOCRIT 23.3 % (34.1-44.9); MCHC 34.3 g/dl (32.2-35.5); MEAN CELL VOLUME 103.1 fl (79.4-94.8); MEAN PLT VOLUME 12.1 fl (9.4-12.3); MONOCYTE # 0.69 x10^3/uL (0.24-0.86); MONOCYTE % 10.5 % (4.7-12.5); PLATELET COUNT 180 x10^3/uL (182-369); RDW 19.5 % (12.3-16.6)
[2024-09-04 09:09] LABS: Reticulocyte % 10.54 % (0.5-1.7)
[2024-09-04 09:14] LABS: POTASSIUM 3.5 mmol/L (3.5-5.1)
[2024-09-04 09:20] LABS: CALCIUM 8.7 mg/dL (8.5-10.1)
[2024-09-04 09:24] LABS: CREATININE 0.7 mg/dL (0.55-1.3); PHOSPHOROUS 3.2 mg/dL (2.5-4.9)
[2024-09-04] MEDS: ENOXAPARIN NA (PORCINE) 40 MG/0.4 ML DISP.SYRIN SQ SCH (10:44)
[2024-09-04] MEDS: PANTOPRAZOLE 40 MG TABLET PO SCH (10:44)
[2024-09-04] MEDS: ASPIRIN 81 MG CHEWABLE TABLETS PO SCH (10:44)
[2024-09-04] MEDS ORDERED: LACTATED RINGERS SOLUTION 1,000 ML/1,000 ML INFUS.BAG IV SCH (11:45)
[2024-09-04] MEDS: POLYETHYLENE GLYCOL (HEALTHYLAX) 3350 17 GM PACKET PO SCH (14:05)
[2024-09-04] MEDS: KETOROLAC TROMETHAMINE 30 MG/1 ML VIAL IVPUSH ONE (21:42)
[2024-09-05] MEDS: HYDROmorphone HCL CARPU-JECT 2 MG/1 ML DISP.SYRIN IVPUSH PRN (06:21)
[2024-09-05 06:59] LABS: ABSOLUTE IMMATURE GRANULOCYTES 0.02 x10^3/uL (0.0-0.031); BASOPHILS # 0.04 x10^3/uL (0.01-0.08); EOSINOPHIL % 2.7 % (0.7-5.8); EOSINOPHILS # 0.12 x10^3/uL (0.04-0.36); HEMOGLOBIN 8.7 g/dL (11.2-15.7); MCHC 34.8 g/dl (32.2-35.5); MEAN CELL VOLUME 102.9 fl (79.4-94.8); MEAN PLT VOLUME 12.1 fl (9.4-12.3); MONOCYTE # 0.64 x10^3/uL (0.24-0.86); MONOCYTE % 14.3 % (4.7-12.5); PLATELET COUNT 177 x10^3/uL (182-369); RDW 18.9 % (12.3-16.6)
[2024-09-05 07:01] LABS: HEMATOCRIT 25.8 % (34.1-44.9); HEMOGLOBIN 8.8 g/dL (11.2-15.7); MCHC 34.1 g/dl (32.2-35.5); MEAN CELL VOLUME 103.2 fl (79.4-94.8); MEAN PLT VOLUME 11.8 fl (9.4-12.3); PLATELET COUNT 176 x10^3/uL (182-369); RDW 19.3 % (12.3-16.6)
[2024-09-05 07:02] LABS: Reticulocyte % 8.15 % (0.5-1.7)
[2024-09-05 07:19] LABS: POTASSIUM 3.6 mmol/L (3.5-5.1)
[2024-09-05 07:21] LABS: CALCIUM 9.1 mg/dL (8.5-10.1)
[2024-09-05 07:22] LABS: ALBUMIN 3.2 g/dl (3.4-5.0); BLOOD UREA NITROGEN 6.1 mg/dL (7-18)
[2024-09-05 07:25] LABS: CREATININE 0.6 mg/dL (0.55-1.3)
[2024-09-05 07:27] LABS: BILIRUBIN,TOTAL 1.2 mg/dL (0.2-1); TOT PROT 7.2 g/dl (6.4-8.2)
[2024-09-05] MEDS ORDERED: HYDROmorphone HCl 2 MG/ML VIAL IVPB PRN (13:16)
[2024-09-05] MEDS ORDERED: DOCUSATE SODIUM 100 MG CAPSULE (FP) PO PRN (13:19)
[2024-09-05] MEDS: HYDROmorphone HCL CARPU-JECT 2 MG/1 ML DISP.SYRIN IVPB PRN (15:15)
[2024-09-05] MEDS: SENNOSIDES 8.6MG TABLET (FP) PO SCH (22:07)
[2024-09-05] MEDS: ATORVASTATIN CA 40 MG TABLET (FP) PO SCH (22:08)
[2024-09-05] MEDS: POLYETHYLENE GLYCOL (HEALTHYLAX) 3350 17 GM PACKET PO SCH (22:08)
[2024-09-06 07:01] LABS: ABSOLUTE IMMATURE GRANULOCYTES 0.02 x10^3/uL (0.0-0.031); BASOPHILS # 0.03 x10^3/uL (0.01-0.08); EOSINOPHIL % 1.3 % (0.7-5.8); EOSINOPHILS # 0.08 x10^3/uL (0.04-0.36); HEMOGLOBIN 8.5 g/dL (11.2-15.7); MEAN CELL VOLUME 103.7 fl (79.4-94.8); MEAN PLT VOLUME 12.9 fl (9.4-12.3); PLATELET COUNT 160 x10^3/uL (182-369); RDW 19.4 % (12.3-16.6)
[2024-09-06 07:02] LABS: HEMATOCRIT 25.6 % (34.1-44.9); HEMOGLOBIN 8.5 g/dL (11.2-15.7); MCHC 33.2 g/dl (32.2-35.5); MEAN CELL VOLUME 105.3 fl (79.4-94.8); MEAN PLT VOLUME 13.2 fl (9.4-12.3); PLATELET COUNT 161 x10^3/uL (182-369); RDW 19.7 % (12.3-16.6)
[2024-09-06 07:21] LABS: POTASSIUM 4.7 mmol/L (3.5-5.1)
[2024-09-06 07:32] LABS: CALCIUM 9.1 mg/dL (8.5-10.1)
[2024-09-06 07:33] LABS: BLOOD UREA NITROGEN 13.2 mg/dL (7-18)
[2024-09-06 07:36] LABS: CREATININE 0.6 mg/dL (0.55-1.3)
[2024-09-06 07:37] LABS: BILIRUBIN,TOTAL 1.1 mg/dL (0.2-1)
[2024-09-06 09:59] LABS: Reticulocyte % 5.84 % (0.5-1.7)
[2024-09-06] MEDS ORDERED: ENOXAPARIN NA (PORCINE) 40 MG/0.4 ML DISP.SYRIN SQ SCH (10:00)
[2024-09-06] MEDS: PANTOPRAZOLE 40 MG TABLET PO SCH (10:03)
[2024-09-06] MEDS: APIXABAN 5 MG TABLET PO SCH (10:04)
[2024-09-06] MEDS: FOLIC ACID 1 MG TABLET (FP) PO SCH (10:04)
[2024-09-06] MEDS: ASPIRIN 81 MG CHEWABLE TABLETS PO SCH (10:06)
[2024-09-06] MEDS: PATIENT'S OWN MEDICATION (NON-FORMULARY) (Riociguat [Adempas] 2.5 MG Tablet) PO SCH (11:47)
[2024-09-07] MEDS: MELATONIN 5 MG TABLETS PO ONE ×2 (01:18→23:08)
[2024-09-07 06:57] LABS: HEMATOCRIT 24.7 % (34.1-44.9); HEMOGLOBIN 8.5 g/dL (11.2-15.7); MCHC 34.4 g/dl (32.2-35.5); MEAN CELL VOLUME 102.1 fl (79.4-94.8); MEAN PLT VOLUME 12.2 fl (9.4-12.3); PLATELET COUNT 136 x10^3/uL (182-369); RDW 18.7 % (12.3-16.6)
[2024-09-07 07:14] LABS: POTASSIUM 4.2 mmol/L (3.5-5.1)
[2024-09-07 07:19] LABS: BLOOD UREA NITROGEN 11.5 mg/dL (7-18); CALCIUM 9.3 mg/dL (8.5-10.1); MAGNESIUM 1.8 mg/dL (1.8-2.4)
[2024-09-07 07:20] LABS: ALBUMIN 3.1 g/dl (3.4-5.0)
[2024-09-07 07:23] LABS: BILIRUBIN,TOTAL 1.1 mg/dL (0.2-1); CREATININE 0.6 mg/dL (0.55-1.3); PHOSPHOROUS 2.8 mg/dL (2.5-4.9)
[2024-09-07 07:24] LABS: TOT PROT 7.3 g/dl (6.4-8.2)
[2024-09-07 13:35] LABS: Reticulocyte % 4.41 % (0.5-1.7)
[2024-09-07 17:24] LABS: BILIRUBIN,DIRECT 0.5 mg/dL (0.0-0.2)
[2024-09-07] MEDS: HYDROmorphone HCL CARPU-JECT 2 MG/1 ML DISP.SYRIN IVPUSH ONE (18:47)
[2024-09-07] MEDS: FAMOTIDINE 20 MG/50 ML IVPB 20 MG/50 ML MG IVPB ONE (19:03)
[2024-09-07] MEDS: SODIUM CHLORIDE 1,000 ML IV SCH (20:02)
[2024-09-07] MEDS: HYDROmorphone HCL CARPU-JECT 2 MG/1 ML DISP.SYRIN IVPB PRN (20:03)
[2024-09-07] MEDS: ALBUTEROL SO4 0.083% IH SOL 2.5 MG/3 ML VIAL.NEB. NEB ONE (20:05)
[2024-09-07] MEDS: methylPREDNISolone NA SUCC 125 MG/2 ML VIAL IVPB ONE (21:11)
[2024-09-07] MEDS: diphenhydrAMINE HCL 25 MG CAPSULE (FP) PO ONE (21:15)
[2024-09-07] MEDS: RIOCIGUAT 2.5 MG PO SCH (23:54)
[2024-09-08 08:16] LABS: POTASSIUM 4.2 mmol/L (3.5-5.1)
[2024-09-08 08:47] LABS: CALCIUM 8.9 mg/dL (8.5-10.1)
[2024-09-08 08:48] LABS: BLOOD UREA NITROGEN 10.5 mg/dL (7-18); MAGNESIUM 1.9 mg/dL (1.8-2.4)
[2024-09-08 08:51] LABS: CREATININE 0.6 mg/dL (0.55-1.3); PHOSPHOROUS 2.9 mg/dL (2.5-4.9)
[2024-09-08 08:52] LABS: BILIRUBIN,TOTAL 0.8 mg/dL (0.2-1); TOT PROT 7.1 g/dl (6.4-8.2)
[2024-09-08 09:49] LABS: HEMATOCRIT 24.2 % (34.1-44.9); HEMOGLOBIN 8.4 g/dL (11.2-15.7); MCHC 34.7 g/dl (32.2-35.5); MEAN CELL VOLUME 102.5 fl (79.4-94.8); MEAN PLT VOLUME 12.6 fl (9.4-12.3); PLATELET COUNT 148 x10^3/uL (182-369); RDW 18.8 % (12.3-16.6); Reticulocyte % 4.63 % (0.5-1.7)
[2024-09-08] MEDS: HYDROmorphone HCL CARPU-JECT 2 MG/1 ML DISP.SYRIN IVPB PRN ×2 (10:14→20:30)
[2024-09-08] MEDS: RIOCIGUAT PO SCH ×2 (11:14→15:31)
[2024-09-08] MEDS: morphine SO4 SUSTAINED ACTING 30 MG TABLET.SA PO SCH (12:23)
[2024-09-08] MEDS: FAMOTIDINE 20 MG/50 ML IVPB 20 MG/50 ML MG IVPB ONE (18:26)
[2024-09-08] MEDS: MELATONIN 5 MG TABLETS PO PRN (21:38)
[2024-09-08] MEDS: HYDROmorphone HCL CARPU-JECT 2 MG/1 ML DISP.SYRIN IVPUSH ONE (23:37)
[2024-09-09 06:57] LABS: POTASSIUM 3.7 mmol/L (3.5-5.1)
[2024-09-09 07:03] LABS: ALBUMIN 3.1 g/dl (3.4-5.0); BLOOD UREA NITROGEN 8.4 mg/dL (7-18); MAGNESIUM 1.8 mg/dL (1.8-2.4)
[2024-09-09 07:06] LABS: CREATININE 0.6 mg/dL (0.55-1.3); PHOSPHOROUS 3.1 mg/dL (2.5-4.9)
[2024-09-09 07:07] LABS: BILIRUBIN,TOTAL 1.4 mg/dL (0.2-1)
[2024-09-09 07:08] LABS: TOT PROT 7.1 g/dl (6.4-8.2)
[2024-09-09 07:59] LABS: HEMATOCRIT 26.3 % (34.1-44.9); HEMOGLOBIN 8.8 g/dL (11.2-15.7); MCHC 33.5 g/dl (32.2-35.5); MEAN PLT VOLUME 11.5 fl (9.4-12.3); PLATELET COUNT 103 x10^3/uL (182-369); RDW 19.5 % (12.3-16.6)
[2024-09-09] MEDS ORDERED: HYDROmorphone HCL CARPU-JECT 2 MG/1 ML DISP.SYRIN IVPB PRN (08:40)
[2024-09-09 09:05] LABS: BILIRUBIN,DIRECT 0.7 mg/dL (0.0-0.2)
[2024-09-09] MEDS: FAMOTIDINE 20 MG/50 ML IVPB 20 MG/50 ML MG IVPB SCH (10:35)
[2024-09-09 10:45] LABS: Reticulocyte % 6.14 % (0.5-1.7)
[2024-09-09] MEDS ORDERED: hydrOXYzine PAMOATE 25 MG CAPSULE (FP) PO PRN (16:12)
[2024-09-09] MEDS: CycloBENZAprine HCL 10 MG TABLET (FP) PO ONE (16:31)
[2024-09-09] MEDS: ACETAMINOPHEN 1000 MG/100 ML BAG IVPB ONE (17:27)
[2024-09-09] MEDS: LIDOCAINE 4% PATCH TP ONE (17:29)
[2024-09-09] MEDS: SODIUM CHLORIDE 1,000 ML IV SCH (18:04)
[2024-09-09] MEDS: LIDOCAINE PATCH REMOVAL MC SCH (21:14)
[2024-09-09] MEDS ORDERED: ACETAMINOPHEN 1000 MG/100 ML BAG IVPB ONE (21:30)
[2024-09-10] MEDS: ACETAMINOPHEN 1000 MG/100 ML BAG IVPB ONE ×2 (00:05→06:52)
[2024-09-10] MEDS: HYDROmorphone HCL CARPU-JECT 2 MG/1 ML DISP.SYRIN IVPB PRN (03:25)
[2024-09-10 08:05] LABS: POTASSIUM 3.5 mmol/L (3.5-5.1)
[2024-09-10 08:07] LABS: CALCIUM 9.2 mg/dL (8.5-10.1)
[2024-09-10 08:08] LABS: BLOOD UREA NITROGEN 9.6 mg/dL (7-18)
[2024-09-10 08:11] LABS: CREATININE 0.5 mg/dL (0.55-1.3); PHOSPHOROUS 2.7 mg/dL (2.5-4.9)
[2024-09-10 08:12] LABS: BILIRUBIN,TOTAL 2.2 mg/dL (0.2-1); TOT PROT 7.2 g/dl (6.4-8.2)
[2024-09-10 08:23] LABS: HEMOGLOBIN 9.5 g/dL (11.2-15.7); MCHC 35.2 g/dl (32.2-35.5); MEAN CELL VOLUME 98.5 fl (79.4-94.8); PLATELET COUNT 72 x10^3/uL (182-369); RDW 18.8 % (12.3-16.6)
[2024-09-10 09:36] LABS: BILIRUBIN,DIRECT 1.2 mg/dL (0.0-0.2)
[2024-09-10] MEDS: IBUPROFEN 800 MG/8 ML IJ IVPB ONE (10:21)
[2024-09-10 10:51] LABS: ARTERIAL BLD GAS O2 SATURATION 93.5 % (95-98); ARTERIAL BLOOD GAS BASE EXCESS -2.9 mmol/L (-2-2); ARTERIAL BLOOD GAS PO2 63.2 mmHg (80-100)
[2024-09-10 10:52] LABS: ALLENS TEST POSITIVE
[2024-09-10 15:20] LABS: Reticulocyte % 5.32 % (0.5-1.7)
[2024-09-10] MEDS: LACOSAMIDE 50 MG TABLET PO SCH (21:52)
[2024-09-11] MEDS: IBUPROFEN 400 MG TABLET (FP) PO ONE (06:09)
[2024-09-11 09:46] LABS: ABSOLUTE IMMATURE GRANULOCYTES 0.07 x10^3/uL (0.0-0.031); BASOPHILS # 0.03 x10^3/uL (0.01-0.08); EOSINOPHIL % 0.9 % (0.7-5.8); EOSINOPHILS # 0.09 x10^3/uL (0.04-0.36); HEMATOCRIT 22.5 % (34.1-44.9); HEMOGLOBIN 7.8 g/dL (11.2-15.7); MCHC 34.7 g/dl (32.2-35.5); MEAN CELL VOLUME 99.1 fl (79.4-94.8); MONOCYTE # 1.01 x10^3/uL (0.24-0.86); MONOCYTE % 10.4 % (4.7-12.5); PLATELET COUNT 53 x10^3/uL (182-369); RDW 18.6 % (12.3-16.6)
[2024-09-11] MEDS: CEFTRIAXONE 1 G/50 ML PREMIX 50 ML IVPB SCH (09:58)
[2024-09-11 10:04] LABS: POTASSIUM 3.1 mmol/L (3.5-5.1)
[2024-09-11 10:08] LABS: ALBUMIN 2.5 g/dl (3.4-5.0); BLOOD UREA NITROGEN 7.8 mg/dL (7-18); CALCIUM 8.6 mg/dL (8.5-10.1); MAGNESIUM 1.8 mg/dL (1.8-2.4)
[2024-09-11 10:11] LABS: CREATININE 0.7 mg/dL (0.55-1.3)
[2024-09-11 10:12] LABS: BILIRUBIN,TOTAL 1.8 mg/dL (0.2-1); PHOSPHOROUS 2.3 mg/dL (2.5-4.9); TOT PROT 6.1 g/dl (6.4-8.2)
[2024-09-11] MEDS: NAPH,MB-DB/K PH,MBDB POWDER PACKET PO ONE (12:03)
[2024-09-11] MEDS: POTASSIUM CHLORIDE ORAL LIQUID 20 MEQ/15 ML PO ONE (12:03)
[2024-09-11] MEDS: LIDOCAINE 4% PATCH TP SCH (12:03)
[2024-09-11] MEDS: HYDROmorphone HCL CARPU-JECT 2 MG/1 ML DISP.SYRIN IVPB PRN (13:31)
[2024-09-11] MEDS: SODIUM CHLORIDE 1,000 ML IV SCH (13:32)
[2024-09-11] MEDS: LIDOCAINE PATCH REMOVAL MC SCH (21:38)
[2024-09-11] MEDS ORDERED: LIDOCAINE PATCH REMOVAL MC SCH (22:00)
[2024-09-12 10:00] VITALS: RESP 18
[2024-09-12 11:41] LABS: Reticulocyte % 6.91 % (0.5-1.7)
[2024-09-12 11:43] LABS: HEMATOCRIT 21.7 % (34.1-44.9); HEMOGLOBIN 7.5 g/dL (11.2-15.7); MCHC 34.6 g/dl (32.2-35.5); MEAN CELL VOLUME 99.1 fl (79.4-94.8); PLATELET COUNT 58 x10^3/uL (182-369); RDW 19.2 % (12.3-16.6)
[2024-09-12 12:02] LABS: POTASSIUM 4.3 mmol/L (3.5-5.1)
[2024-09-12 12:04] LABS: ALBUMIN 2.5 g/dl (3.4-5.0); BLOOD UREA NITROGEN 9.2 mg/dL (7-18); CALCIUM 8.6 mg/dL (8.5-10.1)
[2024-09-12 12:08] LABS: CREATININE 0.6 mg/dL (0.55-1.3); PHOSPHOROUS 2.4 mg/dL (2.5-4.9)
[2024-09-12 12:09] LABS: BILIRUBIN,TOTAL 1.5 mg/dL (0.2-1); TOT PROT 6.5 g/dl (6.4-8.2)
[2024-09-12] MEDS ORDERED: methylPREDNISolone NA SUCC 40 MG/1 ML VIAL IVPUSH PRN (12:57)
[2024-09-12] MEDS: NAPH,MB-DB/K PH,MBDB POWDER PACKET PO SCH (13:18)
[2024-09-12] MEDS: ACETAMINOPHEN 325 MG TABLET (FP) PO PRN (16:39)
[2024-09-12] MEDS: HYDROmorphone HCL CARPU-JECT 2 MG/1 ML DISP.SYRIN IVPB PRN (23:45)
[2024-09-13] MEDS ORDERED: methylPREDNISolone 4 MG TABLET PO ONE (06:00)
[2024-09-13] MEDS: diphenhydrAMINE HCL 25 MG CAPSULE (FP) PO ONE (07:00)
[2024-09-13] MEDS: NAPH,MB-DB/K PH,MBDB POWDER PACKET PO ONE (07:40)
[2024-09-13 08:15] LABS: Reticulocyte % 5.89 % (0.5-1.7)
[2024-09-13 08:19] LABS: ABSOLUTE IMMATURE GRANULOCYTES 0.04 x10^3/uL (0.0-0.031); BASOPHILS # 0.02 x10^3/uL (0.01-0.08); HEMATOCRIT 24.8 % (34.1-44.9); HEMOGLOBIN 8.9 g/dL (11.2-15.7); MCHC 35.9 g/dl (32.2-35.5); MEAN CELL VOLUME 94.7 fl (79.4-94.8); MONOCYTE # 0.15 x10^3/uL (0.24-0.86); MONOCYTE % 2.4 % (4.7-12.5); PLATELET COUNT 67 x10^3/uL (182-369); RDW 18.6 % (12.3-16.6)
[2024-09-13 08:28] LABS: POTASSIUM 4.1 mmol/L (3.5-5.1)
[2024-09-13 08:36] LABS: BLOOD UREA NITROGEN 9.6 mg/dL (7-18); CALCIUM 8.9 mg/dL (8.5-10.1)
[2024-09-13 08:37] LABS: ALBUMIN 2.6 g/dl (3.4-5.0)
[2024-09-13 08:39] LABS: CREATININE 0.5 mg/dL (0.55-1.3)
[2024-09-13 08:41] LABS: BILIRUBIN,TOTAL 1.9 mg/dL (0.2-1); TOT PROT 6.9 g/dl (6.4-8.2)
[2024-09-13 11:49] LABS: PHOSPHOROUS 3.6 mg/dL (2.5-4.9)
[2024-09-13] MEDS ORDERED: LACOSAMIDE 100 MG TABLET PO SCH (15:32)
[2024-09-13 17:07] VITALS: BP 119/61; TEMP 98.4
[2024-09-13 18:07] VITALS: PULSE 109
== END 2024-09-13 17:25 | disposition home or self-care (01) | DRG 812 ==
LOC: JER 11:21 → JERBED 15:01 → J5S 20:11 → J4S 09-04 16:15
PROVIDERS: ADMIT Student in an Organized Health Care Education/Training Program; ATTEND Internal Medicine
DX: D57.00 Hb-SS disease with crisis, unspecified (principal); I69.351 Hemiplegia and hemiparesis following cerebral infarction affecting right dominant side; F11.20 Opioid dependence, uncomplicated; I42.9 Cardiomyopathy, unspecified; J96.11 Chronic respiratory failure with hypoxia; G40.909 Epilepsy, unspecified, not intractable, without status epilepticus; I25.10 Atherosclerotic heart disease of native coronary artery without angina pectoris; Z99.81 Dependence on supplemental oxygen; I27.20 Pulmonary hypertension, unspecified; D69.6 Thrombocytopenia, unspecified; R07.89 Other chest pain; R74.8 Abnormal levels of other serum enzymes; I11.0 Hypertensive heart disease with heart failure
CPT/HCPCS: 0241U-QW; 36415; 36430; 36600; 71045-TC-FY; 71275-TC; 72125-TC; 73200-TC-RT; 74220-TC-FY; 76705-TC; 80048; 80053; 81003; 82248; 82728; 82803; 82962; 83010; 83021; 83615; 83735; 83880; 84100; 84155; 84165; 84484; 85025; 85027; 85610; 85730; 86704; 86803; 86850; 86880; 86900; 86901; 86902; 86922; 87040; 87086; 87340; 87517; 93005; 93010; 93306-TC; 94640; 94761; 97116-GP; 97161-GP; 99285-25; J0131; P9058; Q9967

== ENCOUNTER 2024-11-02 17:35 | Emergency (ER) | payer OTHER ==
[2024-11-02 17:48] VITALS: BP 106/62; PULSE 82; RESP 16; TEMP 98.9; BMI 19.5
== END 2024-11-02 18:40 | disposition home or self-care (01) ==
LOC: JER 17:35
DX: G40.909 Epilepsy, unspecified, not intractable, without status epilepticus (principal); Z76.0 Encounter for issue of repeat prescription
CPT/HCPCS: 99281-25

== ENCOUNTER 2024-12-09 14:16 | Observation (INO) | payer OTHER ==
[2024-12-09] MEDS: LACTATED RINGERS SOLUTION 1000 ML INFUS.BAG IV ONE (16:29)
[2024-12-09 16:55] LABS: INR 1.07 (0.83-1.09); PROTHROMBIN TIME (PATIENT) 11.8 SEC (9.7-13.0)
[2024-12-09 16:58] LABS: ABSOLUTE IMMATURE GRANULOCYTES 0.05 x10^3/uL (0.0-0.031); ACTIVATED PTT 27.5 SECONDS (25.2-36.5); BASOPHILS # 0.01 x10^3/uL (0.01-0.08); EOSINOPHIL % 0.7 % (0.7-5.8); EOSINOPHILS # 0.04 x10^3/uL (0.04-0.36); MCHC 35.2 g/dl (32.2-35.5); MEAN CELL VOLUME 108.9 fl (79.4-94.8); MONOCYTE # 0.55 x10^3/uL (0.24-0.86); MONOCYTE % 10.0 % (4.7-12.5); RDW 19.2 % (12.3-16.6)
[2024-12-09 17:10] LABS: CO2 33 mmol/L (21-32); GLUCOSE,RANDOM 79 mg/dL (74-106)
[2024-12-09 17:14] LABS: CREATININE 0.8 mg/dL (0.55-1.3); SGOT/AST 94 U/L (15-37); SGPT/ALT 30 U/L (13-61)
[2024-12-09 17:16] LABS: LDL CHOLESTEROL (ONLY SJRH) 32 mg/dL (5-100); TOT PROT 8.6 g/dl (6.4-8.2)
[2024-12-09 17:17] LABS: ALK PHOS 279 U/L (45-117)
[2024-12-09 18:14] LABS: HCV DIAGNOSTIC IN-HOUSE W/RFLX NON-REACTIVE (NONREACTIVE)
[2024-12-09 18:15] LABS: HIV INTERPRETATION NEGATIVE (NEGATIVE)
[2024-12-09 18:50] LABS: EPI CELLS 7 /uL (0-25.1); HYALINE CASTS 1 /uL (0-3.1); URINE APPEARANCE CLEAR; URINE BACTERIA 46 /uL (0-1359); URINE BILIRUBIN NEGATIVE (NEGATIVE); URINE COLOR YELLOW; URINE GLUCOSE (UA) NEGATIVE (NEGATIVE); URINE KETONE NEGATIVE (NEGATIVE); URINE LEUK ESTERASE 1+ (NEGATIVE); URINE NITRITE NEGATIVE (NEGATIVE); URINE PROTEIN NEGATIVE (NEGATIVE); URINE RBC 9 /uL (0-23.9); URINE UROBILINOGEN 1.0 mg/dL (0.2-1.0); URINE WBC 17 /uL (0-25.8)
[2024-12-09] MEDS: SODIUM CHLORIDE 0.9% 500 ML INFUS.BAG IV ONE (19:19)
[2024-12-09 22:59] VITALS: BMI 18.6
[2024-12-10] MEDS: LACOSAMIDE 100 MG TABLET PO ONE (01:12)
[2024-12-10] MEDS: HYDROXYUREA 500 MG CAPSULE PO SCH (10:18)
[2024-12-10] MEDS: LACOSAMIDE 50 MG TABLET PO SCH (10:18)
[2024-12-10] MEDS: ASPIRIN 81 MG CHEWABLE TABLETS PO SCH (10:18)
[2024-12-10] MEDS: ENOXAPARIN NA (PORCINE) 40 MG/0.4 ML DISP.SYRIN SQ SCH (10:19)
[2024-12-10] MEDS ORDERED: ZOLPIDEM TARTRATE 5 MG TABLET PO PRN (10:48)
[2024-12-10 11:03] LABS: IMMATURE PLATELET FRACTION # 13.30 x10^3/uL; MCHC 36.9 g/dl (32.2-35.5); MEAN CELL VOLUME 106.1 fl (79.4-94.8); MEAN PLT VOLUME 12.7 fl (9.4-12.3); RDW 17.9 % (12.3-16.6)
[2024-12-10 11:33] LABS: INR 1.07 (0.83-1.09); PROTHROMBIN TIME (PATIENT) 11.7 SEC (9.7-13.0)
[2024-12-10 11:36] LABS: ACTIVATED PTT 27.3 SECONDS (25.2-36.5)
[2024-12-10 11:46] LABS: LDL CHOLESTEROL (ONLY SJRH) 40 mg/dL (5-100)
[2024-12-10 11:54] LABS: CO2 28 mmol/L (21-32); GLUCOSE,RANDOM 110 mg/dL (74-106)
[2024-12-10 11:57] LABS: CREATININE 0.4 mg/dL (0.55-1.3)
[2024-12-10 11:58] LABS: SGOT/AST 317 U/L (15-37); SGPT/ALT 48 U/L (13-61); TOT PROT 9.0 g/dl (6.4-8.2)
[2024-12-10 12:00] LABS: ALK PHOS 271 U/L (45-117)
[2024-12-10 12:18] LABS: LDH 2360 U/L (84-246)
[2024-12-10] MEDS ORDERED: PATIENT'S OWN MEDICATION (NON-FORMULARY) (Riociguat [Adempas] 2.5 MG Tablet) PO SCH (14:00)
[2024-12-10] MEDS: SODIUM CHLORIDE 1,000 ML IV SCH (14:43)
[2024-12-10] MEDS: KCL 10 MEQ IVPB 10 MEQ/100 ML INFUS.BAG IVPB SCH (14:43)
[2024-12-10] MEDS: POTASSIUM CHLORIDE ORAL LIQUID 20 MEQ/15 ML PO ONE ×2 (14:43→18:00)
[2024-12-10] MEDS: ATORVASTATIN CA 40 MG TABLET (FP) PO SCH (21:24)
[2024-12-11] MEDS: POTASSIUM CHLORIDE ORAL LIQUID 20 MEQ/15 ML PO ONE ×3 (00:47→09:47)
[2024-12-11 08:11] LABS: IMMATURE PLATELET FRACTION # 10.00 x10^3/uL
[2024-12-11 08:41] LABS: MCHC 35.5 g/dl (32.2-35.5); MEAN CELL VOLUME 108.8 fl (79.4-94.8); RDW 18.1 % (12.3-16.6)
[2024-12-11] MEDS: PANTOPRAZOLE 40 MG TABLET PO SCH (09:48)
[2024-12-11 10:06] LABS: CO2 25.0 mmol/L (21-32)
[2024-12-11 10:07] LABS: GLUCOSE,RANDOM 98.0 mg/dL (74-106)
[2024-12-11 10:10] LABS: CREATININE 0.8 mg/dL (0.55-1.3); SGPT/ALT 30.0 U/L (13-61)
[2024-12-11 10:12] LABS: SGOT/AST 60.0 U/L (15-37); TOT PROT 7.8 g/dl (6.4-8.2)
[2024-12-11 10:13] LABS: ALK PHOS 270.0 U/L (45-117)
[2024-12-11] MEDS: ADEMPAS 1.5 MG PO SCH (13:54)
[2024-12-12 05:44] VITALS: RESP 16
[2024-12-12] MEDS ORDERED: HYDROXYUREA 500 MG CAPSULE PO SCH ×2 (09:20→10:00)
[2024-12-12 15:15] VITALS: BP 118/89; PULSE 97; TEMP 99
== END 2024-12-12 14:00 | disposition home or self-care (01) ==
LOC: JER 14:16 → JERBED 18:17 → J4W 21:01 → OBSVTOIN 12-10 00:25 → INTOOBSV 12-10 00:25
PROVIDERS: ADMIT Internal Medicine; ATTEND Student in an Organized Health Care Education/Training Program
PROC: 3E0337Z Introduction of Electrolytic and Water Balance Substance into Peripheral Vein, Percutaneous Approach (ICD-10-PCS; principal; 2024-12-09)
DX: R47.81 Slurred speech (principal); R20.0 Anesthesia of skin; E80.6 Other disorders of bilirubin metabolism; I27.20 Pulmonary hypertension, unspecified; I69.80 Unspecified sequelae of other cerebrovascular disease; D57.1 Sickle-cell disease without crisis; Z79.01 Long term (current) use of anticoagulants; Z88.8 Allergy status to other drugs, medicaments and biological substances
CPT/HCPCS: 36415; 70450-TC; 70551-TC; 71045-TC-FY; 80048; 80053; 80061; 80076; 81003; 82248; 82550; 82607; 82746; 83615; 83735; 84100; 84132; 84443; 84484; 85025; 85027; 85610; 85730; 86803; 87077; 87086; 87389; 93005; 93010; 93880-TC; 96360; 96361; 97116-GP; 97162-GP; 99285-25; G0378; J8999

== ENCOUNTER 2025-01-02 14:44 | Emergency (ER) | payer OTHER ==
[2025-01-02 15:00] VITALS: BP 114/65; PULSE 94; RESP 18; TEMP 98.9; BMI 19.6
== END 2025-01-02 15:44 | disposition home or self-care (01) ==
LOC: JERFT 14:44
DX: Z76.0 Encounter for issue of repeat prescription (principal)
CPT/HCPCS: 99281-25